=== PATIENT | male | born 1990 | race American Indian/Alaskan Native ===

== ENCOUNTER 2017-06-26 12:18 | Emergency (ER) | payer SELFPAY ==
[2017-06-26 12:27] VITALS: PULSE 78
[2017-06-26] MEDS ORDERED: cefTRIAXone (Rocephin) 250 mg Inj IM STA (12:39)
--- NOTE | 2017-06-26 12:45 | ED PDOC ---
Arrival/HPI - General Chief Complaint: Male Genitourinary Time Seen by Provider: 06/26/17 12:19 Historian: Patient - History of Present Illness Time/Duration: Other (2 days) Symptom Onset: Gradual Symptom Course: Unchanged Severity Level: Mild Associated Symptoms (Text): 06/26/17 12:43 Patient complains of unprotected sex with a new partner last week and a yellow- green penile discharge for the last 2 days. There is some dysuria. No abdominal pain nausea vomiting or diarrhea. No fever. Past Medical History - Psychiatric Hx Substance Use: Yes (pot) Family/Social History - Physician Review Nursing Documentation Reviewed: Yes Family/Social History: Unknown Family HX Smoking Status: Current Some Days Smoker Hx Alcohol Use: No Hx Substance Use: Yes (pot) Allergies/Home Meds Allergies/Adverse Reactions: Allergies No Known Allergies Allergy (Verified 06/26/17 12:27) Home Medications: Home Meds Medication Instructions Recorded Confirmed No Known Home Med 06/26/17 06/26/17 Review of Systems - Physician Review All systems were reviewed & negative as marked: Yes Physical Exam Vital Signs Temp Pulse Resp BP Pulse Ox 06/26/17 12:23 98.1 F 78 16 120/68 98 Temperature: Afebrile Blood Pressure: Normal Pulse: Regular Respiratory Rate: Normal Appearance: Positive for: Well-Appearing, Non-Toxic, Comfortable Pain Distress: None Mental Status: Positive for: Alert and Oriented X 3 - Systems Exam Abdomen: Present: Tenderness Genitourinary Male: Present: Normal External Genitalia, Circumcised Penis, Penile Discharge (Purulent). No: Lesions, Testicle Tenderness, Penile Swelling , Masses, Erythema, Testicle Swelling Medical Decision Making - Medication Orders Current Medication Orders: Discontinued Medications Azithromycin (Zithromax) 1,000 mg PO STAT STA PRN Reason: Protocol Stop: 06/26/17 12:40 Ceftriaxone Sodium (Rocephin) 250 mg IM STAT STA PRN Reason: Protocol Stop: 06/26/17 12:40 Disposition/Present on Arrival - Present on Arrival Any Indicators Present on Arrival: No History of DVT/PE: No History of Uncontrolled Diabetes: No Urinary Catheter: No History of Decub. Ulcer: No History Surgical Site Infection Following: None - Disposition Have Diagnosis and Disposition been Completed?: Yes Diagnosis: STD (male) Disposition: HOME/ ROUTINE Disposition Time: 12:44 Patient Plan: Discharge Condition: GOOD Discharge Instructions (ExitCare): Sexually Transmitted Diseases (ED), Condom Use (ED), Safe Sex (ED) Additional Instructions: Have partner treated
[2017-06-26 13:00] VITALS: BMI 30.9
[2017-06-26 13:16] VITALS: BP 120/68; RESP 16; TEMP 98.1; O2SAT 98
== END 2017-06-26 13:22 | disposition home or self-care (01) ==
LOC: ED 12:18
DX: A64 Unspecified sexually transmitted disease (principal)
CPT/HCPCS: 87491; 87591; 96372; 99283; J0696